=== PATIENT | male | born 1950 | race African-American/Black ===

== ENCOUNTER 2017-02-24 17:35 | Emergency (ER) | payer MEDICARE, BC ==
[2017-02-24 18:15] VITALS: BP 134/71
--- NOTE | 2017-02-24 21:02 | UC ---
Elbow Pain - HPI Summary HPI Summary: WHILE OUT HUNTING THIS MORNING PT HAD ONSET OF SHARP PAIN RIGHT FOREARM. WORSE WITH MOVEMENT OF ARM. WORSE WITH EXTENSION OF ELBOW. DENIES ANY TRAUMA OR INJURY. NO NUMBNESS. NO PREVIOUS INJURY. NO SWELLING. TOOK [place] WITH NO RELIEF. - History of Current Complaint Chief Complaint: UCUpperExtremity Stated Complaint: ELBOW AND ARM PAIN Time Seen by Provider: 02/24/17 20:51 Hx Obtained From: Patient Onset/Duration: Hours, Still Present Severity Initially: Moderate Severity Currently: Moderate Pain Intensity: 7 Pain Scale Used: 0-10 Numeric Location Of Pain: Is Discrete @ - RIGHT FOREARM Character: Sharp Aggravating Factor(s): Movement, Twisting Alleviating Factor(s): Rest Associated Signs And Symptoms: Positive: Negative - Allergies/Home Medications Allergies/Adverse Reactions: Allergies Allergy/AdvReac Type Severity Reaction Status Date / Time No Known Allergies Allergy Verified 02/24/17 18:15 PMH/Surg Hx/FS Hx/Imm Hx Cardiovascular History Of: Reports: Hypertension - Surgical History Surgical History: Yes Surgery Procedure, Year, and Place: nasal. cataract - Family History Known Family History: Negative: Hypertension - Social History Alcohol Use: Daily Substance Use Type: None Smoking Status (MU): Never Smoked Tobacco Review of Systems Constitutional: Negative Skin: Negative Respiratory: Negative Cardiovascular: Negative Gastrointestinal: Negative Musculoskeletal: Decreased ROM, Myalgia All Other Systems Reviewed And Are Negative: Yes Physical Exam Triage Information Reviewed: Yes Appearance: Well-Appearing, No Pain Distress, Well-Nourished Vital Signs: Initial Vital Signs Temp 99.1 F 02/24/17 18:10 Pulse 63 02/24/17 18:10 Resp 16 02/24/17 18:10 BP 134/71 02/24/17 18:10 Pulse Ox 100 02/24/17 18:10 Vital Signs Reviewed: Yes Eyes: Positive: Conjunctiva Clear ENT: Positive: Hearing grossly normal Neck: Positive: Supple Respiratory: Positive: No respiratory distress, No accessory muscle use Cardiovascular: Positive: Pulses Normal Abdomen Description: Positive: Soft Musculoskeletal: Positive: No Edema, Other: - NO TTP OVER BONY PROMINENCES. NO OLECRANON BURSAL FULLNESS OR TENDERNESS. UNABLE TO REPRODUCE PAIN WITH PALPATION OVER MUSCULATURE. NO BICEPS TENDON TENDERNESS. NEG YERGASON. SHARP PAIN OVER BRACHIORADIALIS REPORTED WITH PRONATION AND SUPINATION RIGHT ARM. Neurological: Positive: Alert Psychological: Positive: Age Appropriate Behavior Skin: Negative: rashes Elbow Pain Course/Dx - Course Course Of Treatment: DURING PHYSICAL EXAM, WHILE PALPATING ARM, PAIN SUDDENLY RESOLVED. PT REPORTED NO PAIN AT ALL AND HAD FULL ROM. NO INTERVENTION. D/C HOME. - Differential Dx/Diagnosis Provider Diagnoses: RIGHT ARM PAIN - RESOLVED Discharge - Discharge Plan Condition: Stable Disposition: HOME Patient Education Materials: Arm Pain (ED) Referrals: Bashir Longo MD [Primary Care Provider] - If Needed Additional Instructions: UNCLEAR ETIOLOGY OF YOUR ARM PAIN. GIVEN RESOLUTION OF SYMPTOMS DURING THE ENCOUNTER NO ACUTE INTERVENTION REQUIRED AT THIS TIME. FOLLOW-UP WITH DR. LONGO IF NEEDED. IF YOUR SYMPTOMS RECUR TRY TAKING OTC IBUPROFEN. STRETCH AND GO THROUGH SLOW RANGE OF MOTION EXERCISES.
== END 2017-02-24 21:15 | disposition home or self-care (01) ==
LOC: UCEAST 17:35
DX: M79.601 Pain in right arm (principal); I10 Essential (primary) hypertension
CPT/HCPCS: 99211; G0463